=== PATIENT | male | born 1965 | race Caucasian/White ===

== ENCOUNTER 2021-10-09 10:24 | Outpatient (CLI) | payer BC, SELFPAY ==
[2021-10-09 13:41] LABS: Basophils Absolute Auto 0.05 K/uL (0.00-0.30); Eosinophils Absolute Auto 0.07 K/uL (0.00-0.50); Eosinophils Percent Auto 1.4 % (0.0-7.0); Hematocrit 36.3 % (37.0-53.0); Hemoglobin* 12.1 gm/dL (13.5-17.5); Immature Granulocytes Abs Auto 0.01 K/uL (0.00-0.30); Lymphocytes Percent Auto 8.2 % (20-44); Mean Corpuscular HGB Conc 33 gm/dL (32-36); Mean Corpuscular Hemoglobin 32 pg (26-34); Mean Corpuscular Volume 96 fL (80-100); Monocytes Percent Auto 15.7 % (0.0-11.0); Neutrophils Percent Auto 73.5 % (42.0-72.0); Platelet Count* 286 K/uL (140-440); RDW Coefficient of Variation % 12.6 % (11.5-15.5); Red Blood Count 3.78 m/uL (4.30-5.90); White Blood Count* 5.03 K/uL (4.50-11.00)
[2021-10-09 13:44] LABS: Slide Review Reflex No
[2021-10-09 14:07] LABS: Thyroid Stimulating Hormone* 0.836 uIU/mL (0.270-4.20)
[2021-10-09 14:17] LABS: Chloride* 97 mmol/L (96-114)
[2021-10-09 14:18] LABS: Potassium* 4.1 mmol/L (3.6-5.1); Sodium* 133 mmol/L (135-149)
[2021-10-09 14:20] LABS: Carbon Dioxide* 31 mmol/L (20-32); Creatinine* 0.5 mg/dL (0.5-1.5); Estimated Glomerular Filt Rate 118 ml/min
[2021-10-09 14:21] LABS: Alanine Aminotransferase* 11 U/L (4-50); Alkaline Phosphatase* 60 U/L (40-150); Aspartate Amino Transferase* 19 U/L (12-35); Bilirubin Total* 0.4 mg/dL (0.1-1.5); Blood Urea Nitrogen* 4 mg/dL (7-30); Calcium* 9.3 mg/dL (8.4-10.6); Glucose* 95 mg/dL (60-115); Total Protein* 6.4 g/dL (6.0-8.3)
[2021-10-10 08:48] LABS: Magnesium* 1.9 mg/dL (1.5-2.6)
== END 2021-10-09 10:25 | disposition home or self-care (01) ==
PROVIDERS: PCP Family Medicine; Visit Provider Family Medicine
DX: C09.9 Malignant neoplasm of tonsil, unspecified (principal); R53.83 Other fatigue; I48.91 Unspecified atrial fibrillation
CPT/HCPCS: 80053; 83735; 84443; 85025

== ENCOUNTER 2022-09-14 09:39 | Outpatient (CLI) | payer BC, SELFPAY | END 2022-09-14 09:40 | disposition home or self-care (01) | PROVIDERS: PCP Family Medicine; Visit Provider Family Medicine | DX: I48.91 Unspecified atrial fibrillation (principal); Z12.5 Encounter for screening for malignant neoplasm of prostate; Z13.9 Encounter for screening, unspecified | CPT/HCPCS: 80048; 84153; 85025 ==

== ENCOUNTER 2023-12-06 09:02 | Outpatient (CLI) | payer BC, SELFPAY | END 2023-12-06 09:03 | disposition home or self-care (01) | PROVIDERS: PCP Family Medicine; Visit Provider Family Medicine | DX: G89.29 Other chronic pain (principal); Z12.5 Encounter for screening for malignant neoplasm of prostate; Z13.6 Encounter for screening for cardiovascular disorders | CPT/HCPCS: 80048; 80061; G0103 ==

== ENCOUNTER 2025-02-07 10:00 | Outpatient (CLI) | payer BC, SELFPAY | END 2025-02-07 10:01 | disposition home or self-care (01) | PROVIDERS: PCP Family Medicine; Visit Provider Family Medicine | DX: Z00.00 Encounter for general adult medical examination without abnormal findings (principal); Z12.5 Encounter for screening for malignant neoplasm of prostate | CPT/HCPCS: 80048; 85025; G0103 ==